=== PATIENT | female | born 1990 | race American Indian/Alaskan Native ===

== ENCOUNTER 2024-11-18 02:21 | Day surgery (SDC) | payer MEDICAID ==
[2024-11-18] MEDS ORDERED: Sodium Chloride 0.9% 10 ML Syringe FLUSH PRN ×2 (03:07→08:09)
[2024-11-18] MEDS ORDERED: Naloxone 0.4 MG/ML SDV IVPUSH PRN ×2 (03:07→03:52)
[2024-11-18] MEDS: Morphine 4 MG/ML Syringe IVPUSH ONE (03:20)
[2024-11-18 03:24] LABS: BASOPHILS PERCENT AUTO 0.4 % (0.0-1.0); EOSINOPHILS ABSOLUTE AUTO 0.1 K/mm3 (0.0-0.4); EOSINOPHILS PERCENT AUTO 1.1 % (0.0-6.0); HEMATOCRIT 38.1 % (37.0-47.0); HEMOGLOBIN 12.3 gm/dl (12.0-16.0); IMMATURE GRAN ABSOLUTE AUTO 0.03 K/mm3 (0.00-0.05); IMMATURE GRAN PERCENT AUTO 0.3 % (0.0-0.4); LYMPHOCYTES ABSOLUTE AUTO 2.4 K/mm3 (1.0-4.8); LYMPHOCYTES PERCENT AUTO 21.5 % (24.0-44.0); MEAN CORPUSCULAR HEMOGLOBIN 28.9 pg (28.0-32.0); MEAN CORPUSCULAR HGB CONC 32.3 g/dl (32.0-36.0); MEAN CORPUSCULAR VOLUME 89.6 fl (83.0-99.0); MEAN PLATELET VOLUME 9.1 fl (9.4-12.3); MONOCYTES ABSOLUTE AUTO 0.5 K/mm3 (0.0-0.8); MONOCYTES PERCENT AUTO 4.6 % (0.0-8.0); NEUTROPHILS ABSOLUTE AUTO 8.1 K/mm3 (1.8-7.7); NEUTROPHILS PERCENT AUTO 72.1 % (41.0-71.0); PLATELET COUNT,PLT 380 K/mm3 (150-400); RED BLOOD CELL COUNT 4.25 M/mm3 (4.10-5.30); WHITE BLOOD CELL COUNT,WBC 11.19 K/mm3 (3.9-11.3)
[2024-11-18] MEDS: Ondansetron 4 MG/2 ML SDV IVPUSH ONE (03:44)
[2024-11-18] MEDS: Ketorolac 30 MG/ML SDV IVPUSH ONE (03:44)
[2024-11-18 03:48] LABS: A/G RATIO 0.8 (1-2); ALBUMIN 3.1 g/dl (3.4-5.0); ANION GAP 12.6 (5-15); BILIRUBIN TOTAL 0.3 mg/dL (0.2-1.0); BUN/CREATININE RATIO 17.1 (14-18); CALCIUM 8.8 mg/dL (8.5-10.1); CREATININE 0.7 mg/dL (0.55-1.02); EST CRCL DRUG DOSING (CG) 90.41 mL/min; POTASSIUM,K 3.6 mEq/L (3.5-5.1); PROTEIN TOTAL,TP 6.9 g/dl (6.4-8.2)
[2024-11-18 03:50] LABS: LACTIC ACID 0.8 mmol/L (0.4-2.0)
[2024-11-18] MEDS ORDERED: HYDROmorphone 0.5 MG/0.5 ML Syringe IVPUSH ONE (03:52)
[2024-11-18] MEDS: HYDROmorphone 1 MG/ML Syringe IVPUSH ONE (04:02)
[2024-11-18] MEDS: Iopamidol 612 MG/ML 100 ML Bottle IVPUSH ONE (04:17)
[2024-11-18] MEDS ORDERED: Propofol 200 MG/20 ML SDV ONE ×2 (06:39→08:26)
[2024-11-18] MEDS ORDERED: fentaNYL 250 MCG/5 ML SDV ONE ×2 (06:39→08:30)
[2024-11-18] MEDS ORDERED: Midazolam 1 MG/ML 2 ML SDV ONE (06:39)
[2024-11-18] MEDS ORDERED: Rocuronium 50 MG/5 ML Vial ONE (06:42)
[2024-11-18] MEDS ORDERED: Lidocaine 2% 5 ML SDV ONE (07:31)
[2024-11-18] MEDS ORDERED: Phenylephrine 1% 10 MG/ML SDV ONE (07:45)
[2024-11-18] MEDS ORDERED: Sodium Chloride 0.9% 100 ML ONE (07:54)
[2024-11-18] MEDS ORDERED: ceFAZolin 2 GM Vial ONE (07:54)
[2024-11-18] MEDS ORDERED: Ondansetron 4 MG/2 ML SDV ONE (07:54)
[2024-11-18] MEDS ORDERED: Dexamethasone 4 MG/ML 5 ML MDV ONE (07:54)
[2024-11-18] MEDS ORDERED: Ketorolac 30 MG/ML SDV ONE (07:54)
[2024-11-18] MEDS ORDERED: Ondansetron 4 MG/2 ML SDV IVPUSH PRN (08:10)
[2024-11-18] MEDS ORDERED: HYDROmorphone 0.5 MG/0.5 ML Syringe IVPUSH PRN (08:10)
[2024-11-18] MEDS ORDERED: Lactated Ringers 1,000 ML IV SCH (08:15)
[2024-11-18] MEDS: Albuterol/Ipratropium 3.0-0.5 MG/3 ML Neb Soln NEB ONE (08:21)
[2024-11-18] MEDS ORDERED: Esmolol 100 MG/10 ML SDV ONE (08:26)
[2024-11-18] MEDS ORDERED: Lactated Ringers 1,000 ML IV ONE ×2 (08:30→09:30)
[2024-11-18] MEDS ORDERED: Sugammadex Sodium 200 MG/2 ML VIAL IV ONE (09:07)
[2024-11-18] MEDS: Bupivacaine 0.5% 30 ML SDV ONE (09:25)
[2024-11-18] MEDS: Lidocaine 1% 30 ML SDV ONE (09:29)
[2024-11-18] MEDS: EPINEPHrine 1 MG/ML SDV ONE (09:30)
[2024-11-18] MEDS: ceFAZolin 2 GM Vial IVPUSH ONE (11:17)
[2024-11-18] MEDS: Acetaminophen/oxyCODONE 325-5 MG Tab PO PRN (11:21)
[2024-11-18] MEDS: fentaNYL 100 MCG/2 ML SDV IVPUSH PRN (11:22)
== END 2024-11-18 13:05 | disposition home or self-care (01) ==
LOC: JD.ED 02:21 → JD.SDS 08:29
PROVIDERS: ATTEND Surgery
DX: K80.12 Calculus of gallbladder with acute and chronic cholecystitis without obstruction (principal); Z79.899 Other long term (current) drug therapy
CPT/HCPCS: 00790; 36415; 74177; 74177-26; 76705; 76705-26; 80053; 83605; 83690; 84484; 84703; 85025; 93005; 93010; 94640; 96374; 96375; 99140; 99285; 99285-25; A9270-GY; J0171; J0665; J0690; J1100; J1171; J1885; J2003; J2250; J2270; J2371; J2405; J2704; J3010; J3490; J7120; Q9967